=== PATIENT | female | born 1995 | race Hispanic/Latino ===

== ENCOUNTER 2018-12-06 13:56 | Inpatient (IN) | payer BC ==
[2018-12-06] MEDS ORDERED: Lorazepam 2 MG/ML VIAL ONE (14:16)
[2018-12-06 14:27] LABS: #Lymphocytes 1.7 thou/uL (1.20-3.40); #Monocytes 0.5 thou/uL (0.11-0.59); #Neutrophils 4.8 thou/uL (1.40-6.50); %Eosinophils 0.3 % (0.0-10.0); %Lymphocytes 23.7 % (21.0-51.0); %Monocytes 7.6 % (0.0-10.0); %Neutrophils 68.3 % (42.0-75.0); Hemoglobin 12.7 g/dL (12.0-16.0); Mean Corpuscular HGB CONC 33.5 g/dL (32.0-36.0); Mean Corpuscular Hemoglobin 25.2 pg (27.0-31.0); Mean Corpuscular Volume 75.4 fL (78.0-98.0); Mean Platelet Volume 8.3 fL (7.4-10.4); Platelet Count 341 thou/uL (130-400); RBC Distribution Width 13.2 % (11.5-14.5); Red Blood Cell (RBC) Count 5.04 mill/uL (4.20-5.40)
[2018-12-06] MEDS ORDERED: Metoprolol Tartrate 5 MG/5 ML VIAL ONE ×3 (14:49→15:47)
[2018-12-06 14:59] LABS: ALT (SGPT) 45 U/L (8-55); AST (SGOT) 27 U/L (5-34); Albumin 4.1 g/dL (3.5-5.0); Alkaline Phosphatase 108 U/L (40-150); Anion Gap 12 mmol/L (10-20); BUN (Urea Nitrogen) 11 mg/dL (7.0-18.7); Bilirubin, Total 0.4 mg/dL (0.2-1.2); Calc. Creatinine Clearance 0 mL/min (70-130); Carbon Dioxide 20 mmol/L (22-29); Chloride 109 mmol/L (98-107); Estimated GFR-MDRD Greater than 90; Globulin 4.7 g/dL (2.4-3.5); Glucose 143 mg/dL (70-105); Lipase 39 U/L (8-78); Potassium 3.1 mmol/L (3.5-5.1); Protein, Total 8.8 g/dL (6.0-8.3); Sodium 138 mmol/L (136-145)
--- NOTE | 2018-12-06 15:02 | CT ---
CHEST AND ABDOMEN AND PELVIC CT SCAN WITH IV CONTRAST THORACIC SPINE CT SCAN WITH IV CONTRAST LIMITED LUMBAR SPINE CT SCAN WITH IV CONTRAST LIMITED: FINDINGS: CHEST, ABDOMEN, AND PELVIC CT SCAN WITH IV CONTRAST: Marked diffuse thyromegaly, evidence for Grave's disease. At least borderline thymus gland, nonspeci fic for a patient of this age, correlate with any clinical or laboratory findings in regards to thymu s gland abnormality. No pneumothorax or pleural effusion. No acute pulmonary parenchymal process. Two healed right rib fractures. Liver, gallbladder, pancreas, and adrenal glands are unremarkable. Borderline-size spleen. Bilatera l renal hydroureteral nephrosis probably secondary to a distended urinary bladder. No free intraperi toneal fluid within the abdomen or pelvis. No retroperitoneal hematoma. Uterus and adnexa are unrem arkable. The appendix appears to be borderline in size with several appendicoliths, but no evidence for periappendiceal fat stranding or other signs for acute appendicitis to go along with this. IMPRESSION: 1. No significant acute posttraumatic process in the chest, abdomen, or pelvis. Marked thyromegaly. Borderline-size thymus gland. Distended urinary bladder with bilateral hydroureteral nephrosis pro bably secondary to the distended bladder. 2. Borderline size appendix with some appendicoliths without CT findings for acute appendicitis such as fat stranding or abscess. THORACIC SPINE CT SCAN WITH IV CONTRAST LIMITED: IMPRESSION: No fracture, dislocation, or other significant acute osseous abnormality. LUMBAR SPINE CT SCAN WITH IV CONTRAST LIMITED: IMPRESSION: Unremarkable lumbar spine CT scan. Findings were discussed with Dr. Jaimes by phone at approximately 2:40 p.m. JOHANNE ROSAS
[2018-12-06] MEDS ORDERED: Adacel (T-DAP) 0.5 ML SYRINGE ONE (15:20)
[2018-12-06] MEDS ORDERED: Potassium Chloride 20 MEQ TAB ONE (15:20)
[2018-12-06 15:40] LABS: Bilirubin Negative (Negative); Blood, Urine Negative (Negative); Clarity CLEAR (Clear); Glucose, Urine (Dipstick) Negative (Negative); Leukocyte Negative (Negative); Nitrite Negative (Negative); Protein, Urine (Dipstick) Negative (Neg-Trace); Specific Gravity, Urine 1.007 (1.002-1.036); Urobilinogen 0.2 mg/dL (0.2-1.0); pH, Urine 6.5 (5.0-9.0)
[2018-12-06 15:44] LABS: BHCG - Serum Negative (NEGATIVE); Pregs Control Background? CLEAR/WHITE (CLR/WHITE); Pregs Control Bar Appear? YES (CONTROL BAR)
[2018-12-06] MEDS ORDERED: Acetaminophen 325 MG TAB PO PRN (16:41)
[2018-12-06] MEDS ORDERED: Zolpidem Tartrate 5 MG TAB PO PRN (16:41)
[2018-12-06] MEDS ORDERED: Ondansetron PF 4 MG/2 ML Vial IVP PRN ×2 (16:41→19:40)
[2018-12-06] MEDS ORDERED: Metoprolol Tartrate 5 MG/5 ML VIAL IVP PRN (16:46)
--- NOTE | 2018-12-06 16:52 | PDOC.EVN ---
Event Note - Event Note Event Note: H&P DICTATION #[id number]
[2018-12-06] MEDS ORDERED: ISOVUE-370 76%-LOCM 1 ML ONE (17:09)
[2018-12-06] MEDS ORDERED: Sodium Chloride 0.9% 1,000 ML IV SCH (19:40)
[2018-12-06] MEDS ORDERED: Ondansetron ODT 4 MG TAB SL PRN (19:40)
[2018-12-06 19:50] VITALS: BMI 25.7
[2018-12-06 21:03] LABS: Troponin I 0.019 ng/mL (< 0.028)
[2018-12-06] MEDS: Methimazole 10 MG TAB PO SCH (21:31)
[2018-12-06] MEDS: Propranolol 40 MG TAB PO SCH (21:31)
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
[2018-12-07 06:51] LABS: #Lymphocytes 2.3 thou/uL (1.20-3.40); #Monocytes 0.5 thou/uL (0.11-0.59); #Neutrophils 4.1 thou/uL (1.40-6.50); %Basophils 0.2 % (0.0-1.0); %Eosinophils 0.1 % (0.0-10.0); %Lymphocytes 33.6 % (21.0-51.0); %Monocytes 6.6 % (0.0-10.0); %Neutrophils 59.5 % (42.0-75.0); Hemoglobin 11.2 g/dL (12.0-16.0); Mean Corpuscular HGB CONC 32.5 g/dL (32.0-36.0); Mean Corpuscular Volume 76.9 fL (78.0-98.0); Platelet Count 285 thou/uL (130-400); RBC Distribution Width 13.2 % (11.5-14.5); Red Blood Cell (RBC) Count 4.49 mill/uL (4.20-5.40); White Blood Cell (WBC) Count 6.8 thou/uL (4.8-10.8)
[2018-12-07 07:14] LABS: Anion Gap 12 mmol/L (10-20); BUN (Urea Nitrogen) 9 mg/dL (7.0-18.7); Calc. Creatinine Clearance 178 mL/min (70-130); Calcium 9.6 mg/dL (7.8-10.44); Carbon Dioxide 21 mmol/L (22-29); Chloride 108 mmol/L (98-107); Estimated GFR-MDRD Greater than 90; Glucose 97 mg/dL (70-105); Potassium 3.6 mmol/L (3.5-5.1); Sodium 137 mmol/L (136-145)
[2018-12-07 07:18] LABS: Troponin I Less than 0.010 ng/mL (< 0.028)
[2018-12-07] MEDS ORDERED: Enoxaparin Sodium 40 MG/0.4 ML SYRINGE SC SCH (09:00)
[2018-12-07] MEDS: Propranolol 40 MG TAB PO SCH (09:22)
[2018-12-07] MEDS: Methimazole 10 MG TAB PO SCH (09:22)
--- NOTE | 2018-12-07 14:53 | PDOC.PN ---
- Subjective Encounter Start Date: 12/07/18 Encounter Start Time: 10:40 Subjective: no chest pain or palp now -: feels good and wants to go home -: at bedside - Objective Resuscitation Status - Order Detail: 12/06/18 16:41 Resuscitation Status Routine Resuscitation Status: FULL: Full Resuscitation Discussed with: patient KT Reviewed: Yes Vital Signs & Weight: Vital Signs (12 hours) Temp Pulse Resp BP Pulse Ox 12/07/18 12:00 97.9 F 90 16 118/55 L 99 12/07/18 09:20 103 H 123/71 12/07/18 08:05 98 12/07/18 08:01 97.6 F 105 H 18 108/79 98 12/07/18 04:08 97.9 F 106 H 18 116/54 L 100 12/07/18 03:54 97.8 F 105 H 18 106/55 L 98 Weight Weight 142 lb 15.869 oz Result Diagrams: 12/07/18 06:15 12/07/18 06:15 Phys Exam - Physical Examination HEENT: PERRLA, moist MMs proptosis+ Neck: no JVD diffuse enlargement of thyroid h/o Graves Respiratory: no wheezing, no rales Cardiovascular: RRR, no significant murmur Gastrointestinal: soft, non-tender, no distention, positive bowel sounds Musculoskeletal: no edema, pulses present Neurological: non-focal, moves all 4 limbs Psychiatric: normal affect, A&O x 3 Dx/Plan (1) Thyrotoxicosis Code(s): E05.90 - THYROTOXICOSIS, UNSP WITHOUT THYROTOXIC CRISIS OR STORM Status: Resolved Qualifiers: Thyrotoxicosis type: unspecified thyrotoxicosis type (2) Graves disease Code(s): E05.00 - THYROTOXICOSIS W DIFFUSE GOITER W/O THYROTOXIC CRISIS Status : Chronic (3) SVT (supraventricular tachycardia) Code(s): I47.1 - SUPRAVENTRICULAR TACHYCARDIA Status: Resolved - Plan she f/u with senior javascript developer at [employer], had seen him yesterday -: her dose of methimazole was increased to qid and atenolol to bid yesterday -: hemostable, dc pt home -: no strenous activity or exercises, d/w pt and at bedside -: they have f/u to see surgeon for thyroid resection and * .
[2018-12-07 15:40] VITALS: BP 108/55; TEMP 97.6
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
== END 2018-12-07 16:17 | disposition home or self-care (01) | DRG 644 ==
LOC: ERS 13:56 → EDBD 19:26 → 2NO 19:26
PROVIDERS: ADMIT Internal Medicine; ATTEND Internal Medicine
DX: E05.00 Thyrotoxicosis with diffuse goiter without thyrotoxic crisis or storm (principal); I47.1 Supraventricular tachycardia; I10 Essential (primary) hypertension; S60.221A Contusion of right hand, initial encounter; V44.5XXA Car driver injured in collision with heavy transport vehicle or bus in traffic accident, initial encounter
CPT/HCPCS: 36415; 71260; 74177; 80048; 80053; 81003; 83690; 83880; 84439; 84443; 84480; 84484; 84703; 85025; 90715; 93005; 93306; G0390; J1650; J1800; J2060; Q9966